=== PATIENT | male | born 1985 | race Caucasian/White ===

== ENCOUNTER 2022-10-01 06:44 | Day surgery (SDC) | payer BC ==
[~2022-10-01 06:44] MED LIST: Lactated Ringers 1,000 ML IV SCH
[2022-10-01] MEDS ORDERED: fentaNYL 50 MCG/ML SDV IVPUSH PRN (07:15)
[2022-10-01] MEDS ORDERED: Metoclopramide 10 MG/2 ML SDV IVPUSH PRN (07:15)
[2022-10-01] MEDS ORDERED: Ondansetron 4 MG/2 ML SDV IVPUSH PRN (07:15)
[2022-10-01] MEDS ORDERED: droPERidol 5 MG/2 ML SDV IVPUSH PRN (07:15)
[2022-10-01] MEDS ORDERED: Morphine 2 MG/ML SYRINGE IVPUSH PRN (07:15)
[2022-10-01] MEDS ORDERED: Albuterol 0.083% 2.5 MG/3 ML Neb Soln NEB PRN (07:15)
[2022-10-01] MEDS ORDERED: HYDROmorphone 1 MG/ML Syringe IVPUSH PRN (07:15)
[2022-10-01] MEDS ORDERED: Naloxone 0.4 MG/ML SDV IVPUSH PRN (07:15)
[2022-10-01] MEDS ORDERED: fentaNYL 100 MCG/2 ML SDV ONE ×2 (07:33→11:19)
[2022-10-01] MEDS ORDERED: Propofol 200 MG/20 ML SDV ONE (07:33)
[2022-10-01] MEDS ORDERED: Bupivacaine 0.25% 30 ML SDV ONE (07:35)
[2022-10-01] MEDS ORDERED: Ropivacaine 0.5% 5 MG/ML 30 ML SDV ONE (07:36)
[2022-10-01] MEDS ORDERED: Lidocaine 2% 5 ML SDV ONE (07:37)
[2022-10-01] MEDS ORDERED: ceFAZolin 2 GM in Sodium Chloride 0.9% 50 ML IV ONE (08:00)
[2022-10-01] MEDS ORDERED: Ondansetron 4 MG/2 ML SDV ONE ×2 (08:38→11:39)
[2022-10-01] MEDS ORDERED: Ketorolac 30 MG/ML SDV ONE ×2 (08:38→11:39)
[2022-10-01] MEDS ORDERED: ceFAZolin 2 GM Vial ONE (10:14)
[2022-10-01] MEDS ORDERED: Sugammadex Sodium 200 MG/2 ML VIAL ONE (11:29)
[2022-10-01] MEDS ORDERED: Rocuronium Bromide 50 MG/5 ML Syringe ONE (11:39)
== END 2022-10-01 09:35 | disposition home or self-care (01) ==
LOC: MW.SDS 06:44
PROVIDERS: ATTEND Orthopaedic Surgery
DX: G56.02 Carpal tunnel syndrome, left upper limb (principal); K21.9 Gastro-esophageal reflux disease without esophagitis; E66.9 Obesity, unspecified; Z90.49 Acquired absence of other specified parts of digestive tract; Z79.899 Other long term (current) drug therapy
CPT/HCPCS: 64450; 64721; J0131; J0690; J1885; J2405; J2704; J2795; J3010; J3490; J7120